=== PATIENT | female | born 1955 | race Caucasian/White ===

== ENCOUNTER → 2021-12-07 | Day surgery (SDC) | payer MEDICARE, MEDICAID ==
[~2021-12-07] VITALS: Ht 144.8 cm; Wt 44.5 kg
[~2021-12-07] MED LIST: ALT10 MT; ATOR20TA MT; BUPIVACAINE HCL/PF 0.5% (5MG/ML) 10ML ONE; BUSP10TA4 PO; CEFAZOLIN SODIUM 1000MG/VIAL ONE; DEXAMETHASONE 4MG/ML 1ML VIAL ONE; DOCU-138 MT; FENTANYL CITRATE/PF 50MCG/ML 2ML VIAL ONE; HYDR12.54 MT; HYDROCODONE/ACETAMINOPHEN 5/325MG TABLET PO NR; LACTATED RINGERS 1,000 ML IV SCH; MULT-1146 MT; OMEP20CA14 MT; RAMI2.5C6 MT; VERA240C2 MT
[2021-12-07 13:21] VITALS: BP 170/87
== END | disposition home or self-care (01) ==
LOC: OR 06:16
PROVIDERS: ATTEND Surgery
DX: C44.519 Basal cell carcinoma of skin of other part of trunk (principal); I10 Essential (primary) hypertension; E78.00 Pure hypercholesterolemia, unspecified; F41.9 Anxiety disorder, unspecified; F32.9 Major depressive disorder, single episode, unspecified; Z79.899 Other long term (current) drug therapy; Z98.890 Other specified postprocedural states; Z20.822 Contact with and (suspected) exposure to COVID-19
CPT/HCPCS: 11606; 87426; 88305; J0690; J1100; J3010; J3490